=== PATIENT | male | born 2000 | race Caucasian/White ===

== ENCOUNTER 2023-06-13 16:50 | Outpatient (CLI) | payer MEDICAID, SELFPAY ==
[2023-06-20 06:11] LABS: D001-IgE D pteronyssinus 0.21 kU/L (Class 0/I); E001-IgE Cat Dander 0.37 kU/L (Class I); E005-IgE Dog Dander 0.39 kU/L (Class I); E072-IgE Mouse Urine <0.10 kU/L (Class 0); G002-IgE Bermuda Grass <0.10 kU/L (Class 0); G006-IgE Timothy Grass <0.10 kU/L (Class 0); I006-IgE Cockroach, German 0.18 kU/L (Class 0/I); Immunoglobulin E, Total 283 IU/mL (6-495); M001-IgE Penicillium chrysogen 0.15 kU/L (Class 0/I); M003-IgE Aspergillus fumigatus 1.29 kU/L (Class II); T001-IgE Maple/Box Elder <0.10 kU/L (Class 0); T003-IgE Common Silver Birch <0.10 kU/L (Class 0); T006-IgE Cedar, Mountain 0.16 kU/L (Class 0/I); T007-IgE Oak, White <0.10 kU/L (Class 0); T008-IgE Elm, American 0.21 kU/L (Class 0/I); T010-IgE Walnut <0.10 kU/L (Class 0); T011-IgE Maple Leaf Sycamore 0.16 kU/L (Class 0/I); T015-IgE Ash, White 0.11 kU/L (Class 0/I); T022-IgE Pecan, Hickory 0.11 kU/L (Class 0/I); T070-IgE White Mulberry <0.10 kU/L (Class 0); W014-IgE Pigweed, Common 0.22 kU/L (Class 0/I); W018-IgE Sheep Sorrel <0.10 kU/L (Class 0)
== END 2023-06-13 23:59 ==
PROVIDERS: Visit Provider Otolaryngology
DX: T78.40XA Allergy, unspecified, initial encounter (principal)
CPT/HCPCS: 36415; 82785; 86003

== ENCOUNTER 2023-07-11 14:51 | Outpatient (CLI) | payer MEDICAID, SELFPAY ==
--- NOTE | 2023-07-11 14:52 | CT_ITS ---
FINAL REPORT TECHNIQUE: Thin section axial CT images of the facial bones and sinuses were obtained without contrast. Coronal and sagittal reformatted images were also obtained.This study was performed with techniques to keep radiation doses as low as reasonably achievable, (ALARA). Individualized dose reduction techniques using automated exposure control or adjustment of mA and/or kV according to the patient''''s size were employed. CLINICAL HISTORY: chronic sinusits FINDINGS: Mild mucosal thickening is seen in the left posterior ethmoid air cell and left sphenoid sinus. No other sinus mucosal thickening is identified. No fluid levels are identified. The ostiomeatal units have an unremarkable appearance. Mild leftward nasal septal deviation is noted. No fracture or acute bony abnormality is identified. IMPRESSION: Mild left ethmoid and sphenoid sinusitis. Mild leftward nasal septal deviation. Authenticated and ERN
== END 2023-07-11 23:59 ==
LOC: RAD 14:52
PROVIDERS: PCP Otolaryngology; Visit Provider Otolaryngology
DX: J32.9 Chronic sinusitis, unspecified (principal); T78.40XA Allergy, unspecified, initial encounter
CPT/HCPCS: 70486